=== PATIENT | male | born 1955 | race African-American/Black ===

== ENCOUNTER 2017-05-29 15:58 | Inpatient (IN) ==
[2017-05-29] MEDS ORDERED: SODIUM CHLORIDE 0.9% 1,000 ML IV SCH (18:00)
[2017-05-29 18:18] LABS: Basophils # 0.1 10*3/uL (0.0-0.2); Basophils % 0.5 % (0.0-0.8); Eosinophils # 0.2 10*3/uL (0.0-0.87); Hematocrit 43.6 VOL% (42.0-52.0); Hemoglobin 14.6 GM/DL (14.0-18.0); Immature Granulocytes % 0.3 %; Immature Granulocytes Absolute 0.03 #; Lymphocytes # 3.3 10*3/uL (1.4-4.0); Mean Corpuscular HGB Conc 33.5 GM/DL (32-36); Mean Corpuscular Hemoglobin 31 PG (27-34); Mean Corpuscular Volume 91.8 FL (87-102); Mean Platelet Volume 11.1 FL (9.6-12.0); Monocytes # 0.5 10*3/uL (0.11-0.8); Monocytes % 5.8 % (1.7-12.7); Neutrophils # 5.1 10*3/uL (1.4-7.4); Neutrophils % 55.4 % (38.7-73.9); Platelet Count 186 T/CUMM (130-400); Red Blood Count 4.75 MC/CUMM (3.8-5.5); Red Cell Distribution Width 12.1 % (9.3-17.3); White Blood Count 9.2 T/CUMM (4-12)
[2017-05-29 18:28] LABS: Partial Thromboplastin Time 26.4 SECS (0-40)
[2017-05-29 18:44] LABS: Calcium 8.9 MG/DL (8.5-10.1); Magnesium 1.7 MG/DL (1.8-2.4); Osmolality,Calculated 285.7 MOS/KG (273-304); Potassium 3.9 MMOL/L (3.5-5.1)
[2017-05-29] MEDS: INSULIN REGULAR 100 UNIT/ML SUBCUT SCH (21:32)
[2017-05-29] MEDS: CHLORHEXIDINE 0.12% ORAL RINSE 60 ML BOTTLE SWISH/SPIT SCH (21:33)
[2017-05-29] MEDS: CHLORHEXIDINE 4% SOLN 118 ML BOTTLE TOP SCH (21:33)
[2017-05-30] MEDS ORDERED: SODIUM CHLORIDE 0.9% 1,000 ML IV PRN (01:45)
[2017-05-30] MEDS ORDERED: PAPAVERINE 60 MG/2 ML VIAL ONE (05:24)
[2017-05-30] MEDS ORDERED: TISSUE ADHESIVE 1 EACH APPLICATOR TOP ONE (05:24)
[2017-05-30] MEDS ORDERED: VANCOMYCIN 1,000 MG VIAL ONE (05:25)
[2017-05-30] MEDS ORDERED: CEFUROXIME INJ 1,500 MG in SYRINGE 1 EACH IV ONE (05:30)
[2017-05-30] MEDS ORDERED: FAMOTIDINE 20 MG TABLET PO ONE (05:30)
[2017-05-30] MEDS ORDERED: DIAZEPAM 5 MG TABLET PO ONE (05:30)
[2017-05-30] MEDS ORDERED: AMINOCAPROIC ACID 5,000 MG/20 ML VIAL IV ONE (06:07)
[2017-05-30] MEDS ORDERED: EPINEPHrine 1 MG/ML VIAL ONE (06:07)
[2017-05-30 07:36] LABS: ABG Base Excess -1.2 MMOL/L (-2.5-2.5); ABG HCO3 23.4 MMOL/L (20-26); ABG Oxygen Saturation 99.9 % (95-100); ABG PCO2 44.9 MM HG (35-48); ABG PH 7.349 (7.35-7.45); ABG TCO2 21.4 MMOL/L (23-27); Glucose Heart Surgery 233 MG/DL (74-106); Hematocrit Heart Surgery 43.3 PERCENT (42-52); Hemoglobin Heart Surgery 14.1 G/DL (14.0-18.0); Ionized Calcium Arterial 1.19 MMOL/L (1.21-1.46); PCO2 Patient Temp Arterial 44.9 MMHG; PH Patient Temp Arterial 7.349; Patient Temperature 37 CELCIUS; Potassium Heart/CVR 3.9 MMOL/L (3.5-5.1); Sodium Heart/CVR 135 MMOL/L (135-145)
[2017-05-30] MEDS ORDERED: INSULIN REGULAR 100 UNIT/ML ONE (07:43)
[2017-05-30 08:14] LABS: Apearance,Urine CLEAR (Clear); Bilirubin,Urine Negative (Negative); Blood, Urine Negative (Negative); Glucose,Urine (UA) >=500 mg/dL (Negative); Ketones,Urine Negative (Negative); Mucus,Urine Occasional /LPF (Occasional); Nitrite,Urine Negative (Negative); Protein,Urine Negative; RBC,Urine 1 /HPF (0-4); Squamous Epithelial Cell,Urine Occasional /HPF (0-10); Urine Color Yellow (Yellow); Urine Urobilinogen < 2.0 EU/DL (0.2-1.0); WBC,Urine <1 /HPF (0-6)
[2017-05-30] MEDS ORDERED: CALCIUM CHLORIDE 1,000 MG/10 ML VIAL IV ONE (09:02)
[2017-05-30] MEDS ORDERED: HEPARIN/NACL 0.9% 2 UNITS/ML 1,000 ML IV ONE (09:02)
[2017-05-30] MEDS ORDERED: MINERAL OIL/PETROLATUM OPH OINT 3.5 GM TUBE ONE (09:02)
[2017-05-30] MEDS ORDERED: VECURONIUM 10 MG VIAL IV ONE (09:02)
[2017-05-30] MEDS ORDERED: NITROGLYCERIN DRIP 50 MG/250 ML BOTTLE IV ONE ×2 (09:03→10:44)
[2017-05-30] MEDS ORDERED: ETOMIDATE 40 MG/20 ML VIAL IV ONE (09:03)
[2017-05-30] MEDS ORDERED: SUCCINYLCHOLINE 200 MG/10 ML VIAL ONE (09:03)
[2017-05-30] MEDS ORDERED: SODIUM CHLORIDE 0.9% 250 ML IV ONE (09:03)
[2017-05-30] MEDS ORDERED: PHENYLEPHRINE 50 MG/5 ML VIAL ONE (09:03)
[2017-05-30] MEDS ORDERED: LACTATED RINGERS 1,000 ML IV ONE (09:03)
[2017-05-30] MEDS ORDERED: SODIUM CHLORIDE 0.9% 1,000 ML IV ONE (09:03)
[2017-05-30] MEDS ORDERED: MIDAZOLAM 10 MG/2 ML VIAL ONE ×2 (09:04→10:46)
[2017-05-30 09:25] LABS: Hematocrit Heart Surgery 41.8 PERCENT (42-52); Hemoglobin Heart Surgery 13.6 G/DL (14.0-18.0); PCO2 Patient Temp Venous 39.6 MM HG; PH Patient Temp Venous 7.392; PO2 Patient Temp Venous 44.7 MM HG; Potassium Heart/CVR 4.2 MMOL/L (3.5-5.1); VBG Base Excess -0.7 MEQ/L (0-4); VBG HCO3 23.4 MEQ/L (24-28); VBG PCO2 39.6 MMHG (41-51); VBG PH 7.392; VBG PO2 44.7 MMHG (17-40)
[2017-05-30] MEDS ORDERED: SODIUM BICARBONATE 50 MEQ/50 ML SYRINGE IV ONE (09:37)
[2017-05-30] MEDS ORDERED: DEXTROSE 5% KCL 20 MEQ 20 MEQ/1,000 ML BAG IV ONE (09:37)
[2017-05-30] MEDS ORDERED: THROMBIN TOPICAL (RECOMBINANT) 5,000 UNIT VIAL TOP ONE (09:37)
[2017-05-30] MEDS ORDERED: ALBUMIN 25% 25 GM/100 ML VIAL IV ONE (09:38)
[2017-05-30] MEDS ORDERED: MAGNESIUM SULFATE 1 GM/2 ML VIAL ONE (09:38)
[2017-05-30] MEDS ORDERED: PROTAMINE SULFATE 250 MG/25 ML VIAL IV ONE (09:38)
[2017-05-30] MEDS ORDERED: MANNITOL 12.5 GM/50 ML VIAL IV ONE (09:38)
[2017-05-30] MEDS ORDERED: methylPREDNISolone SOD SUC 1,000 MG/8 ML VIAL ONE (09:38)
[2017-05-30] MEDS ORDERED: HEPARIN 10,000 UNIT/10 ML VIAL ONE (09:38)
[2017-05-30] MEDS ORDERED: FUROSEMIDE 20 MG/2 ML VIAL ONE (09:39)
[2017-05-30] MEDS ORDERED: PROTAMINE SULFATE 50 MG/5 ML VIAL IV ONE (09:39)
[2017-05-30] MEDS ORDERED: CALCIUM CHLORIDE 1,000 MG/10 ML SYRINGE IV ONE (09:45)
[2017-05-30] MEDS ORDERED: PHENYLEPHRINE DRIP 0 MG/0 ML PREMIX IV ONE (09:46)
[2017-05-30] MEDS ORDERED: POTASSIUM CHLORIDE RIDER 100 ML IV ONE (09:46)
[2017-05-30] MEDS ORDERED: NITROPRUSSIDE 50 MG/2 ML VIAL ONE (09:46)
[2017-05-30] MEDS ORDERED: ATROPINE 1 MG/1 ML VIAL ONE (09:47)
[2017-05-30] MEDS ORDERED: EPINEPHrine 1 MG/10 ML SYRINGE ONE (09:47)
[2017-05-30] MEDS ORDERED: LIDOCAINE 100 MG/5 ML SYRINGE ONE (09:57)
[2017-05-30] MEDS ORDERED: ALBUMIN 5% 12.5 GM/250 ML VIAL IV ONE (09:57)
[2017-05-30 10:01] LABS: ABG Base Excess -0.4 MMOL/L (-2.5-2.5); ABG HCO3 24.1 MMOL/L (20-26); ABG PCO2 36.2 MM HG (35-48); ABG PH 7.423 (7.35-7.45); ABG TCO2 21.2 MMOL/L (23-27); Glucose Heart Surgery 327 MG/DL (74-106); Hematocrit Heart Surgery 33.4 PERCENT (42-52); Hemoglobin Heart Surgery 10.8 G/DL (14.0-18.0); Ionized Calcium Arterial 1.19 MMOL/L (1.21-1.46); PCO2 Patient Temp Arterial 36.2 MMHG; PH Patient Temp Arterial 7.423; Patient Temperature 37 CELCIUS; Potassium Heart/CVR 3.7 MMOL/L (3.5-5.1); Sodium Heart/CVR 130 MMOL/L (135-145)
[2017-05-30] MEDS ORDERED: NITROGLYCERIN DRIP 50 MG/250 ML BOTTLE IV SCH (10:30)
[2017-05-30] MEDS ORDERED: CHLORHEXIDINE 4% SOLN 118 ML BOTTLE TOP PRN (10:38)
[2017-05-30] MEDS ORDERED: MAGNESIUM SULF RIDER 4 GM in PREMIX 1 EACH IV PRN (10:38)
[2017-05-30] MEDS ORDERED: MORPHINE 2 MG/1 ML SYRINGE IV PRN (10:38)
[2017-05-30] MEDS ORDERED: ACETAMINOPHEN 650 MG SUPP RECTAL PRN (10:38)
[2017-05-30] MEDS ORDERED: DEXTROSE 50% 25 GM/50 ML VIAL IV PRN ×2 (10:38)
[2017-05-30] MEDS ORDERED: POTASSIUM CHLORIDE RIDER 10 MEQ in PREMIX 1 EACH IV PRN (10:38)
[2017-05-30] MEDS ORDERED: INSULIN REGULAR 100 UNIT/ML IV PRN ×2 (10:38→12:00)
[2017-05-30] MEDS ORDERED: SODIUM CHLORIDE 0.9% 250 ML IV PRN (10:38)
[2017-05-30] MEDS ORDERED: ALBUMIN 5% 12.5 GM in PREMIX 1 EACH IV PRN (10:38)
[2017-05-30] MEDS ORDERED: CALCIUM CHLORIDE 1,000 MG/10 ML SYRINGE IV PRN (10:38)
[2017-05-30] MEDS ORDERED: ONDANSETRON 4 MG/2 ML VIAL IV PRN (10:38)
[2017-05-30] MEDS: MIDAZOLAM 2 MG/2 ML VIAL IV PRN ×7 (10:46→13:56)
[2017-05-30] MEDS: SODIUM CHLORIDE 0.45% 1,000 ML IV SCH ×2 (11:00)
[2017-05-30 11:24] LABS: ABG Base Excess -2.6 MMOL/L (-2.5-2.5); ABG HCO3 22.2 MMOL/L (20-26); ABG Oxygen Saturation 97.6 % (95-100); ABG PCO2 44.6 MM HG (35-48); ABG TCO2 20.6 MMOL/L (23-27); Glucose Heart Surgery 241 MG/DL (74-106); Hemoglobin Heart Surgery 13.7 G/DL (14.0-18.0); Potassium Heart/CVR 3.5 MMOL/L (3.5-5.1)
[2017-05-30 11:26] LABS: Basophils # 0.1 10*3/uL (0.0-0.2); Basophils % 0.4 % (0.0-0.8); Eosinophils # 0.1 10*3/uL (0.0-0.87); Eosinophils % 0.4 % (0.00-10.9); Hematocrit 40.4 VOL% (42.0-52.0); Hemoglobin 13.6 GM/DL (14.0-18.0); Immature Granulocytes % 4.2 %; Immature Granulocytes Absolute 0.59 #; Mean Corpuscular HGB Conc 33.7 GM/DL (32-36); Mean Corpuscular Hemoglobin 31 PG (27-34); Mean Corpuscular Volume 92.4 FL (87-102); Mean Platelet Volume 11.2 FL (9.6-12.0); Monocytes # 0.2 10*3/uL (0.11-0.8); Monocytes % 1.6 % (1.7-12.7); Neutrophils # 11.3 10*3/uL (1.4-7.4); Neutrophils % 79.4 % (38.7-73.9); Platelet Count 173 T/CUMM (130-400); Red Blood Count 4.37 MC/CUMM (3.8-5.5); Red Cell Distribution Width 12.2 % (9.3-17.3); White Blood Count 14.2 T/CUMM (4-12)
[2017-05-30] MEDS ORDERED: SEVOFLURANE 1 UNIT/15 MINUTE INH ONE (11:27)
[2017-05-30] MEDS ORDERED: ESMOLOL 100 MG/10 ML VIAL IV ONE (11:27)
[2017-05-30] MEDS: POTASSIUM CHLORIDE RIDER 20 MEQ in PREMIX 1 EACH IV PRN ×4 (11:30→21:06)
[2017-05-30 11:34] LABS: INR 1.1; PT Patient Result 11.6 SECS; Partial Thromboplastin Time 25.4 SECS (0-40)
[2017-05-30 12:00] LABS: Blood Urea Nitrogen 16 MG/DL (7-18); Calcium 8.7 MG/DL (8.5-10.1); Glucose 235 MG/DL (74-106); Lactic Acid 2.1 MMOL/L (0.4-2.0); Magnesium 1.7 MG/DL (1.8-2.4); Osmolality,Calculated 281.8 MOS/KG (273-304); Potassium 3.7 MMOL/L (3.5-5.1); Sodium 137 MMOL/L (136-145)
[2017-05-30 12:29] LABS: Hypochromasia 2+; Lymphocytes 11 % (20-55); Microcytosis 1+; Platelet Estimate Adequate; Segmented Neutrophils 85 % (50-85); Total Cells Counted 100
[2017-05-30] MEDS: INSULIN REGULAR 100 UNIT/ML SUBCUT SCH ×2 (12:33→12:51)
[2017-05-30] MEDS: CHLORHEXIDINE 4% SOLN 118 ML BOTTLE TOP SCH ×2 (12:34→15:03)
[2017-05-30] MEDS: CHLORHEXIDINE 0.12% ORAL RINSE 60 ML BOTTLE SWISH/SPIT SCH ×3 (12:34→21:17)
[2017-05-30] MEDS: INSULIN REGULAR DRIP 100 ML IV SCH ×2 (12:40→19:09)
[2017-05-30] MEDS: NITROPRUSSIDE 100 MG in DEXTROSE 5% 246 ML IV SCH (13:00)
[2017-05-30] MEDS: MORPHINE 10 MG/1 ML VIAL IV PRN ×5 (13:16→23:19)
[2017-05-30] MEDS ORDERED: LABETALOL 20 MG/4 ML SYRINGE IV PRN (13:30)
[2017-05-30] MEDS ORDERED: hydrALAZINE 20 MG/1 ML VIAL ONE (13:35)
[2017-05-30] MEDS: hydrALAZINE 20 MG/1 ML VIAL IV PRN ×3 (14:12→21:43)
[2017-05-30] MEDS: DEXMEDETOMIDINE 200 MCG in SODIUM CHLORIDE 0.9% 48 ML IV SCH (14:45)
[2017-05-30] MEDS ORDERED: METOPROLOL TARTRATE 5 MG/5 ML VIAL IV ONE ×2 (16:24→16:25)
[2017-05-30 16:54] LABS: ABG Base Excess -4.7 MMOL/L (-2.5-2.5); ABG HCO3 20.6 MMOL/L (20-26); ABG Oxygen Saturation 99.1 % (95-100); ABG PCO2 35.8 MM HG (35-48); ABG PH 7.357 (7.35-7.45); ABG TCO2 17.6 MMOL/L (23-27); Glucose Heart Surgery 283 MG/DL (74-106); Hematocrit Heart Surgery 40.5 PERCENT (42-52); Hemoglobin Heart Surgery 13.2 G/DL (14.0-18.0); Potassium Heart/CVR 3.4 MMOL/L (3.5-5.1)
[2017-05-30] MEDS: MAGNESIUM SULF RIDER 2 GM in PREMIX 1 EACH IV PRN ×2 (17:18→19:22)
[2017-05-30] MEDS: CEFUROXIME INJ 1,500 MG in SYRINGE 1 EACH IV SCH (17:57)
[2017-05-30 20:17] LABS: ABG Base Excess -5.5 MMOL/L (-2.5-2.5); ABG HCO3 18.9 MMOL/L (20-26); ABG PCO2 33.7 MM HG (35-48); ABG PH 7.367 (7.35-7.45); ABG PO2 78.4 MM HG (80-95); ABG TCO2 19.9 MMOL/L (23-27); Glucose Heart Surgery 167 MG/DL (74-106); Hemoglobin Heart Surgery 13.8 G/DL (14.0-18.0); Potassium Heart/CVR 3.2 MMOL/L (3.5-5.1)
[2017-05-30 22:02] LABS: Lactic Acid 2.6 MMOL/L (0.4-2.0)
[2017-05-31] MEDS: MORPHINE 10 MG/1 ML VIAL IV PRN ×5 (01:19→10:07)
[2017-05-31 04:33] LABS: Basophils # 0.1 10*3/uL (0.0-0.2); Basophils % 0.3 % (0.0-0.8); Hematocrit 38.3 VOL% (42.0-52.0); Hemoglobin 13.1 GM/DL (14.0-18.0); Immature Granulocytes % 0.9 %; Immature Granulocytes Absolute 0.24 #; Lymphocytes # 0.9 10*3/uL (1.4-4.0); Lymphocytes % 3.4 % (21.2-54.2); Mean Corpuscular HGB Conc 34.2 GM/DL (32-36); Mean Corpuscular Hemoglobin 31 PG (27-34); Mean Corpuscular Volume 91.2 FL (87-102); Mean Platelet Volume 11.7 FL (9.6-12.0); Monocytes % 3.9 % (1.7-12.7); Neutrophils # 24.1 10*3/uL (1.4-7.4); Neutrophils % 91.5 % (38.7-73.9); Platelet Count 180 T/CUMM (130-400); Red Cell Distribution Width 12.4 % (9.3-17.3); White Blood Count 26.3 T/CUMM (4-12)
[2017-05-31] MEDS: INSULIN REGULAR DRIP 100 ML IV SCH (04:42)
[2017-05-31 05:06] LABS: Calcium 8.5 MG/DL (8.5-10.1); Magnesium 2.1 MG/DL (1.8-2.4); Osmolality,Calculated 279.7 MOS/KG (273-304); Potassium 4.4 MMOL/L (3.5-5.1)
[2017-05-31 05:07] LABS: Band Neutrophils 2 % (0-10); Hypochromasia 1+; Lymphocytes 9 % (20-55); Segmented Neutrophils 86 % (50-85); Total Cells Counted 100
[2017-05-31 05:08] LABS: Microcytosis 1+; Platelet Estimate Adequate
[2017-05-31] MEDS: POTASSIUM CHLORIDE RIDER 20 MEQ in PREMIX 1 EACH IV PRN (05:30)
[2017-05-31] MEDS: MAGNESIUM SULF RIDER 2 GM in PREMIX 1 EACH IV PRN (06:21)
[2017-05-31] MEDS: CEFUROXIME INJ 1,500 MG in SYRINGE 1 EACH IV SCH (06:24)
[2017-05-31] MEDS ORDERED: FUROSEMIDE 40 MG/4 ML VIAL IV ONE (06:43)
[2017-05-31] MEDS: SODIUM CHLORIDE 0.45% 1,000 ML IV SCH ×2 (07:05→08:00)
[2017-05-31] MEDS: traMADol 50 MG TABLET PO SCH ×3 (08:04→17:15)
[2017-05-31] MEDS: FUROSEMIDE 40 MG TABLET PO SCH (09:06)
[2017-05-31] MEDS: CARVEDILOL 6.25 MG TABLET PO SCH ×2 (09:06→21:52)
[2017-05-31] MEDS: ASPIRIN EC 325 MG TABLET PO SCH (09:07)
[2017-05-31] MEDS: BENAZEPRIL 10 MG TABLET PO SCH (09:07)
[2017-05-31] MEDS: CHLORHEXIDINE 0.12% ORAL RINSE 60 ML BOTTLE SWISH/SPIT SCH ×3 (09:10→21:55)
[2017-05-31] MEDS: INSULIN ASPART PROTAMINE/ASPART 70/30 100 UNIT/ML SUBCUT SCH ×2 (11:48→21:52)
[2017-05-31] MEDS: NITROPRUSSIDE 100 MG in DEXTROSE 5% 246 ML IV SCH (12:42)
[2017-05-31] MEDS: DEXMEDETOMIDINE 200 MCG in SODIUM CHLORIDE 0.9% 48 ML IV SCH (14:22)
[2017-05-31] MEDS: INSULIN REGULAR 100 UNIT/ML SUBCUT SCH ×2 (17:14→21:52)
[2017-05-31] MEDS: ATORVASTATIN 40 MG TABLET PO SCH (21:53)
[2017-06-01] MEDS: traMADol 50 MG TABLET PO SCH ×4 (00:10→17:09)
[2017-06-01 03:03] LABS: Basophils # 0.1 10*3/uL (0.0-0.2); Basophils % 0.3 % (0.0-0.8); Eosinophils % 0.1 % (0.00-10.9); Hematocrit 40.4 VOL% (42.0-52.0); Immature Granulocytes % 1.1 %; Immature Granulocytes Absolute 0.24 #; Lymphocytes # 1.8 10*3/uL (1.4-4.0); Lymphocytes % 7.8 % (21.2-54.2); Mean Corpuscular HGB Conc 32.2 GM/DL (32-36); Mean Corpuscular Hemoglobin 31 PG (27-34); Mean Corpuscular Volume 95.1 FL (87-102); Mean Platelet Volume 11.5 FL (9.6-12.0); Monocytes # 1.5 10*3/uL (0.11-0.8); Monocytes % 6.5 % (1.7-12.7); Neutrophils # 19.1 10*3/uL (1.4-7.4); Neutrophils % 84.2 % (38.7-73.9); Platelet Count 188 T/CUMM (130-400); Red Blood Count 4.25 MC/CUMM (3.8-5.5); Red Cell Distribution Width 12.8 % (9.3-17.3); White Blood Count 22.7 T/CUMM (4-12)
[2017-06-01 03:30] LABS: Calcium 8.4 MG/DL (8.5-10.1); Magnesium 2.6 MG/DL (1.8-2.4); Osmolality,Calculated 289.8 MOS/KG (273-304); Potassium 4.5 MMOL/L (3.5-5.1)
[2017-06-01 03:58] LABS: Band Neutrophils 3 % (0-10); Lymphocytes 7 % (20-55); Nucleated Red Blood Cells 1 (0-5); Segmented Neutrophils 86 % (50-85)
[2017-06-01 03:59] LABS: Platelet Estimate Normal; Total Cells Counted 100
[2017-06-01] MEDS: ASPIRIN EC 325 MG TABLET PO SCH (09:10)
[2017-06-01] MEDS: INSULIN ASPART PROTAMINE/ASPART 70/30 100 UNIT/ML SUBCUT SCH ×2 (09:10→21:03)
[2017-06-01] MEDS: FUROSEMIDE 40 MG TABLET PO SCH (09:10)
[2017-06-01] MEDS: BENAZEPRIL 10 MG TABLET PO SCH (09:10)
[2017-06-01] MEDS: INSULIN REGULAR 100 UNIT/ML SUBCUT SCH ×4 (09:10→21:03)
[2017-06-01] MEDS: CARVEDILOL 6.25 MG TABLET PO SCH ×2 (09:10→21:03)
[2017-06-01] MEDS: CHLORHEXIDINE 0.12% ORAL RINSE 60 ML BOTTLE SWISH/SPIT SCH ×2 (09:17→21:03)
[2017-06-01] MEDS ORDERED: BISACODYL 5 MG TABLET PO PRN (14:08)
[2017-06-01] MEDS ORDERED: ALUMINUM/MAGNES/SIMETH MAX STR 30 ML UDCUP PO PRN (14:09)
[2017-06-01] MEDS: ATORVASTATIN 40 MG TABLET PO SCH (21:03)
[2017-06-02] MEDS: traMADol 50 MG TABLET PO SCH ×2 (00:09→06:26)
[2017-06-02 05:53] LABS: Basophils # 0.1 10*3/uL (0.0-0.2); Basophils % 0.3 % (0.0-0.8); Eosinophils # 0.2 10*3/uL (0.0-0.87); Eosinophils % 1.1 % (0.00-10.9); Hematocrit 40.4 VOL% (42.0-52.0); Immature Granulocytes % 0.5 %; Immature Granulocytes Absolute 0.08 #; Lymphocytes # 2.4 10*3/uL (1.4-4.0); Lymphocytes % 14.9 % (21.2-54.2); Mean Corpuscular HGB Conc 32.2 GM/DL (32-36); Mean Corpuscular Hemoglobin 31 PG (27-34); Mean Corpuscular Volume 95.1 FL (87-102); Mean Platelet Volume 11.7 FL (9.6-12.0); Monocytes # 1.3 10*3/uL (0.11-0.8); Monocytes % 8.2 % (1.7-12.7); Neutrophils # 11.9 10*3/uL (1.4-7.4); Platelet Count 191 T/CUMM (130-400); Red Blood Count 4.25 MC/CUMM (3.8-5.5); Red Cell Distribution Width 12.6 % (9.3-17.3); White Blood Count 15.9 T/CUMM (4-12)
[2017-06-02 06:17] LABS: Calcium 8.2 MG/DL (8.5-10.1); Magnesium 2.4 MG/DL (1.8-2.4); Osmolality,Calculated 292.3 MOS/KG (273-304); Potassium 4.1 MMOL/L (3.5-5.1)
[2017-06-02] MEDS: BENAZEPRIL 10 MG TABLET PO SCH (09:01)
[2017-06-02] MEDS: ASPIRIN EC 325 MG TABLET PO SCH (09:02)
[2017-06-02] MEDS: CARVEDILOL 6.25 MG TABLET PO SCH (09:02)
[2017-06-02] MEDS: FUROSEMIDE 40 MG TABLET PO SCH (09:02)
[2017-06-02] MEDS: CHLORHEXIDINE 0.12% ORAL RINSE 60 ML BOTTLE SWISH/SPIT SCH (09:03)
[2017-06-02] MEDS: INSULIN ASPART PROTAMINE/ASPART 70/30 100 UNIT/ML SUBCUT SCH (09:04)
[2017-06-02] MEDS: INSULIN REGULAR 100 UNIT/ML SUBCUT SCH (09:34)
[2017-06-02 12:19] VITALS: BP 133/67
== END 2017-06-02 13:14 | disposition home health service (06) | DRG 236 ==
LOC: N.ICU 17:40 → N.CVR 05-30 08:53 → N.ICU 05-31 13:49 → N.TELES 05-31 16:07
PROVIDERS: ADMIT Thoracic Surgery (Cardiothoracic Vascular Surgery); ATTEND Thoracic Surgery (Cardiothoracic Vascular Surgery)